=== PATIENT | male | born 1965 | race Two or more races ===

== ENCOUNTER 2018-02-06 16:32 | Emergency (ER) | payer MEDICAID ==
[~2018-02-06] VITALS: Ht 167.6 cm; Wt 81.6 kg
[2018-02-06 17:23] VITALS: BP 157/86
[2018-02-06] MEDS ORDERED: LIDOCAINE 1% HCL (LOCAL ANESTH.) INJ 20ML MDV IJ ONE (17:45)
== END 2018-02-06 18:22 | disposition home or self-care (01) ==
LOC: ER 16:32
DX: L02.413 Cutaneous abscess of right upper limb (principal); F17.210 Nicotine dependence, cigarettes, uncomplicated; Z59.0 Homelessness
CPT/HCPCS: 10060

== ENCOUNTER 2018-12-28 00:36 | Emergency (ER) | payer MEDICAID ==
[~2018-12-28] VITALS: Ht 167.6 cm; Wt 79.8 kg
[2018-12-28 01:48] VITALS: BP 116/76
[2018-12-28] MEDS ORDERED: methylPREDNISolone SOD SUCC 125 MG/2 ML VL IM ONE (02:15)
[2018-12-28] MEDS ORDERED: KETOROLAC TROMETH 60MG/2ML VIAL IM ONE (02:15)
== END 2018-12-28 02:44 | disposition home or self-care (01) ==
LOC: ER 00:37
DX: M72.2 Plantar fascial fibromatosis (principal); F17.290 Nicotine dependence, other tobacco product, uncomplicated; F11.10 Opioid abuse, uncomplicated
CPT/HCPCS: 73630; 96372; 99283; J1885; J2930

== ENCOUNTER 2019-06-10 14:24 | Emergency (ER) | payer MEDICAID ==
[~2019-06-10] VITALS: Ht 167.6 cm; Wt 81.6 kg
[2019-06-10 15:32] VITALS: BP 121/75
== END 2019-06-10 19:35 | disposition left against medical advice (07) ==
LOC: ER 14:24
DX: L02.414 Cutaneous abscess of left upper limb (principal); Z53.21 Procedure and treatment not carried out due to patient leaving prior to being seen by health care provider